=== PATIENT | female | born 1985 | race Caucasian/White ===

== ENCOUNTER 2016-05-20 23:35 | Emergency (ER) | payer MEDICAID ==
[~2016-05-20] VITALS: Ht 162.6 cm; Wt 47.6 kg
[2016-05-20 23:51] VITALS: BP 116/81
[2016-05-21] MEDS ORDERED: diphenhydrAMINE HCL 50 MG CAPSULE ONE (00:17)
[2016-05-21] MEDS ORDERED: diphenhydrAMINE HCL 50 MG CAPSULE PO ONE (00:30)
== END 2016-05-21 00:25 | disposition home or self-care (01) ==
LOC: ER 23:38
DX: T78.40XA Allergy, unspecified, initial encounter (principal); F17.200 Nicotine dependence, unspecified, uncomplicated; D50.0 Iron deficiency anemia secondary to blood loss (chronic); X58.XXXA Exposure to other specified factors, initial encounter
CPT/HCPCS: A4606; Q0163; Z7610